=== PATIENT | male | born 1995 | race American Indian/Alaskan Native ===

== ENCOUNTER 2016-06-22 12:29 | Emergency (ER) | payer OTHER ==
[~2016-06-22] VITALS: Ht 185.4 cm; Wt 141.0 kg
[~2016-06-22 12:29] MED LIST: AUGM875T PO; CLIN1GEL EXT
[2016-06-22 12:33] VITALS: BP 161/93; PULSE 91; RESP 16; TEMP 98.6; O2SAT 99
--- NOTE | 2016-06-22 12:52 | PD ---
HPI Chief Complaint: Head Injury Time Seen by Provider: 12:39 Travel History International Travel<30 days: No Contact w/Intl Traveler<30days: No Traveled to known affect area: No History of Present Illness HPI [id number] male presents emergency room complaining of headache. He states he was stepping up onto a truck to clean a gutter when he hit his head on the gutter. He was dazed. He did not get knocked out. [place] initially okay. He went home and slept. Today woke up and has some headache, he feels fatigued, he feels dizzy. No vomiting. No contusions or abrasions or lacerations about his head. He otherwise had been feeling generally well and healthy. No history of previous similar symptoms. No history of head injuries. History Past Medical History Medical History: Denies Significant Hx Social History Alcohol Use: No Tobacco Use: No Allergies-Medications (Allergen,Severity, Reaction): Coded Allergies: No Known Allergies (Unverified , 06/22/16) Reported Meds & Prescriptions Reported Meds & Active Scripts Active Clindamax (Clindamycin Phosphate (Topical) 1 % Gel 1 % EXT DAILY Augmentin 875 mg Tab (Amoxicillin & Pot Clavulanate 875 mg Tab) 875 Mg Tab 875 Mg PO BID Review of Systems Except as stated in HPI: all other systems reviewed are Neg Physical Exam Narrative GENERAL: Well-appearing 20-year-old, no acute distress. SKIN: Focused skin assessment warm/dry. HEAD: Atraumatic. Normocephalic. No evidence of injury. EYES: Pupils equal and round. No scleral icterus. No injection or drainage. ENT: No nasal bleeding or discharge. Mucous membranes pink and moist. NECK: Trachea midline. No JVD. No midline tenderness. Full painless range of motion. CARDIOVASCULAR: Regular rate and rhythm. No murmur appreciated. RESPIRATORY: No accessory muscle use. Clear to auscultation. Breath sounds equal bilaterally. GASTROINTESTINAL: Abdomen soft, non-tender, nondistended. Hepatic and splenic margins not palpable. MUSCULOSKELETAL: No obvious deformities. No edema. NEUROLOGICAL: Awake and alert. No obvious cranial nerve deficits. Motor grossly within normal limits. Normal speech. Data Data Last Documented VS Vital Signs Date Time Temp Pulse Resp B/P Pulse Ox O2 Delivery O2 Flow Rate FiO2 4/14/17 12:33 98.6 91 16 161/93 99 [facility] Medical Decision Making Medical Screen Exam Complete: Yes Emergency Medical Condition: Yes Differential Diagnosis Concussion, head injury, ICH, other Narrative Course Medical decision making 20-year-old minor head injury. Some concussion symptoms. No evidence of clinically important traumatic brain injury. Recommend supportive treatment. Diagnosis Primary Impression: Closed head injury Additional Impression: Concussion Departure Forms: Tests/Procedures, Work Release Enter return to work date: Jun 23, 2016 Additional Instructions: Follow-up with your primary doctor for not fully well the next 3-5 days. Use acetaminophen or ibuprofen as needed for pain. Return to the emergency department for any new or worsening symptoms. Med/Other Pt SpecificInfo: No Change to Meds Disposition: 01 DISCHARGE HOME Condition: Stable Ihsan Pierson MD Jun 22, 2016 12:52
== END 2016-06-22 13:10 | disposition home or self-care (01) ==
LOC: PHED 12:29
DX: S09.90XA Unspecified injury of head, initial encounter (principal); S06.0X9A Concussion with loss of consciousness of unspecified duration, initial encounter; W22.8XXA Striking against or struck by other objects, initial encounter; Y93.89 Activity, other specified; Y92.9 Unspecified place or not applicable; Y99.9 Unspecified external cause status
CPT/HCPCS: 99283

== ENCOUNTER 2016-07-26 10:19 | Emergency (ER) | payer OTHER ==
[~2016-07-26] VITALS: Ht 185.4 cm; Wt 145.5 kg
[2016-07-26 10:23] VITALS: BP 141/93; PULSE 88; RESP 18; TEMP 98; O2SAT 97
[2016-07-26] MEDS ORDERED: NAPROXEN 500 MG TAB PO ONE (10:45)
[2016-07-26] MEDS ORDERED: NAPR500 PO (10:50)
--- NOTE | 2016-07-26 10:52 | PD ---
HPI Chief Complaint: Pain: Acute or Chronic Time Seen by Provider: 10:27 Travel History International Travel<30 days: No Contact w/Intl Traveler<30days: No Traveled to known affect area: No History of Present Illness HPI Is a 20-year-old young man who presents to the emergency department of left lower abdominal pain/left groin pain. He states he was getting out of his truck , which is not particularly high, when he got out of On the ground and had severe pain. Cause a drop to the ground. He did not feel like he was a particularly hard jump, or awkward landing. No bending or twisting. Since that time she's had persistent pain in his left lower quadrant. States no testicular pain or swelling. Symptoms started about an hour ago. History Past Medical History Medical History: Denies Significant Hx Social History Alcohol Use: No Tobacco Use: No Allergies-Medications (Allergen,Severity, Reaction): Coded Allergies: No Known Allergies (Unverified , 06/22/16) Reported Meds & Prescriptions Reported Meds & Active Scripts Active Naprosyn (Naproxen) 500 Mg Tab 500 Mg PO BID PRN Review of Systems Except as stated in HPI: all other systems reviewed are Neg Physical Exam Narrative GENERAL: Well-appearing 20-year-old young man, no acute distress. SKIN: Warm and dry. CARDIOVASCULAR: Warm and well perfused. RESPIRATORY: Normal rate and effort. Abdomen: Moderate left lower quadrant abdominal pain. MUSCULOSKELETAL: Examination of the left lower extremity unremarkable. Full painless range of motion of the hip and knee. : Patient refuses. NEUROLOGICAL: Awake and alert. No gross deficits. Data Data Last Documented VS Vital Signs Date Time Temp Pulse Resp B/P Pulse Ox O2 Delivery O2 Flow Rate FiO2 07/26/16 10:49 16 07/26/16 10:23 98.0 88 141/93 97 Orders Urinalysis - C+S If Indicated (07/26/16 10:40) Spine, Lumbar - Ltd (Ap & Lat) (07/26/16 ) Naproxen (Naprosyn) (07/26/16 10:45) Labs Laboratory Tests Test 07/26/16 10:45 Urine Collection Type CLEAN CATCH Urine Color YELLOW Urine Turbidity CLEAR Urine pH 6.0 Urine Specific [place] 1.025 Urine Protein NEG mg/dL Urine Glucose (UA) NEG mg/dL Urine Ketones NEG mg/dL Urine Occult Blood NEG Urine Nitrite NEG Urine Bilirubin NEG Urine Leukocyte Esterase NEG Urine RBC 0-3 /hpf Urine Squamous Epithelial 0-5 /hpf Cells Microscopic Urinalysis Comment CULT NOT INDICATED Urine Collection Time 10:45 [facility] Medical Decision Making Medical Screen Exam Complete: Yes Emergency Medical Condition: Yes Interpretation(s) L-spine x-ray: Negative. UA negative. Differential Diagnosis Groin strain, torsion, hernia, compression fracture, other Narrative Course Medical decision-making 20-year-old male with a four-quadrant abdominal pain after getting out of his truck. Abrupt in onset. I think he probably has a groin strain from getting out of the truck. He's had some chronic back pain, I think compression fracture or pathologic fractures unlikely. We will check an x-ray. Patient refusing a exam. I don't see any hernias. He states he has no testicular tenderness or swelling. Torsion would be another consideration. We'll recommend x-ray, urine, NSAIDs, outpatient follow-up. Diagnosis Primary Impression: Groin strain Qualified Code: S76.212A - Groin strain, left, initial encounter Additional Instructions: Take Naprosyn as prescribed. Return to the emergency department for any worsening pain, any testicular pain or swelling, any vomiting, or any other new or worsening symptoms. Follow-up with her primary doctor for not completely well in 2-3 days. Med/Other Pt SpecificInfo: Prescription(s) given Scripts Naproxen (Naprosyn)500 Mg Gdg101 Mg PO BID PRN (PAIN SCALE 1 TO 10) #20 TAB Prov:Ihsan Pierson MD 07/26/16 Disposition: 01 DISCHARGE HOME Condition: Stable Ihsan Pierson MD July 26, 2016 10:52
[2016-07-26 10:56] LABS: BLOOD, URINE NEG (NEG); GLUCOSE,URINE NEG (NEG); KETONE, URINE NEG (NEG); NITRITE,URINE NEG (NEG)
[2016-07-26 11:06] LABS: COMMENT (UR) CULT NOT INDICATED; CULTURE IF INDICATED CULT NOT INDICATED; METHOD OF COLLECTION CLEAN CATCH; RBC, URINE 0-3 /hpf (0-3); SQUAMOUS EPITHELIAL CELL URINE 0-5 /hpf (0-5); URINE COLOR YELLOW (YELLW/STRAW)
--- NOTE | 2016-07-26 11:30 | RADHPO ---
EXAM DATE/TIME: 07/26/2016 11:00 [place] COMPARISON: No previous studies available for comparison. INDICATIONS : Left groin pain after jumping out of a truck today. MEDICAL HISTORY : None. SURGICAL HISTORY : None. ENCOUNTER: Initial ACUITY: 1 day PAIN SCORE: 8/10 LOCATION: Left groin and radiates down the back of the left leg. FINDINGS: Two view examination was performed. There are five non-rib bearing vertebral bodies. The vertebral bodies are in normal alignment without evidence of subluxation or scoliosis. The disc spaces are johanna ntained. The pedicles are intact. Bony mineralization is normal. No fracture is identified. CONCLUSION: Unremarkable limited examination of the lumbar spine. Ihsan Schwartz MD on July 26, 2016 at 11:28 Board Certified Radiologist. This report was verified electronically.
[2016-07-26 11:35] VITALS: BP 149/80; PULSE 87; RESP 18; O2SAT 99
== END 2016-07-26 11:44 | disposition home or self-care (01) ==
LOC: PHED 10:19
DX: S39.011A Strain of muscle, fascia and tendon of abdomen, initial encounter (principal); X58.XXXA Exposure to other specified factors, initial encounter
CPT/HCPCS: 72100; 81001; 99283

== ENCOUNTER 2016-11-14 20:29 | Emergency (ER) | payer OTHER ==
[~2016-11-14] VITALS: Ht 185.4 cm; Wt 152.0 kg
[~2016-11-14 20:29] MED LIST changes: -AUGM875T PO; -CLIN1GEL EXT; +NAPR500 PO
[2016-11-14 20:34] VITALS: BP 131/99; PULSE 98; RESP 20; TEMP 98.5; O2SAT 98
--- NOTE | 2016-11-14 20:56 | PD ---
HPI Chief Complaint: Respiratory Symptoms Time Seen by Provider: 20:44 Travel History International Travel<30 days: No Contact w/Intl Traveler<30days: No Traveled to known affect area: No History of Present Illness HPI Patient is a 21-year-old male presents emergency Department with sore neck on the left side that he's had all day today, he states he woke up with this and is hurting him when he moves his neck towards the left. Patient has a secondary complaint of after eating [employer] this afternoon he has been gagging feeling like something might be stuck in his throat. He is been able to eat since this and tolerating by mouth fluids. States she just feels like something is gagging him. No fevers no cough no swelling in his neck or throat. PFSH Past Medical History Hx Anticoagulant Therapy: No Diabetes: No Diminished Hearing: No Immunizations Current: Yes Social History Alcohol Use: No Tobacco Use: No Substance Use: No Allergies-Medications (Allergen,Severity, Reaction): Coded Allergies: No Known Allergies (Unverified , 11/14/16) Reported Meds & Prescriptions Reported Meds & Active Scripts Active Nystatin Liq 100,000 unit/ml Susp 5 Ml SWISH-SWAL QID Naprosyn (Naproxen) 500 Mg Tab 500 Mg PO BID PRN Review of Systems Except as stated in HPI: all other systems reviewed are Neg Physical Exam Narrative GENERAL: Well-nourished, well-developed patient. SKIN: Focused skin assessment warm/dry. HEAD: Normocephalic. Atraumatic EYES: No scleral icterus. No injection or drainage. ENT: Oropharynx is clear, tonsils normal, uvula normal, no foreign body seen. Patient has exhibited some gag light reflex while talking to me in the emergency department. Tolerating his own secretions well. NECK: Supple, trachea midline. No JVD or lymphadenopathy. CARDIOVASCULAR: Regular rate and rhythm without murmurs, gallops, or rubs. RESPIRATORY: Breath sounds equal bilaterally. No accessory muscle use. GASTROINTESTINAL: Abdomen soft, non-tender, nondistended. MUSCULOSKELETAL: No cyanosis, or edema. BACK: Nontender without obvious deformity. No CVA tenderness. Data Data Last Documented VS Vital Signs Date Time Temp Pulse Resp B/P (MAP) Pulse Ox O2 Delivery O2 Flow Rate FiO2 11/14/16 22:24 89 18 153/73 (99) 98 11/14/16 21:00 98.5 Room Air Orders Orders Oggj-[id number] Liq (Magic Mouthwash Adul (11/14/16 21:00) [facility] Medical Decision Making Medical Screen Exam Complete: Yes Emergency Medical Condition: Yes Differential Diagnosis Pharyngeal foreign body, neck strain, mono unlikely, stroke unlikely, uvulitis unlikely. Narrative Course patient roomed in the emergency department, he has not had anything with bones: No fish and no chicken recently. He did have a meal just before the symptoms started and he may have a small fluid bolus in his pharynx causing some gagging symptoms. He appears well and has not had any fevers tolerating his own secretions. He was given a dose of nystatin Magic mouthwash and was tolerating by mouth liquids afterwards. I discussed with him expectant management at this time and discussed return to ED criteria and may ultimately need laryngoscopy but at this time I think he's got a fair chance to pass with possible food bolus at this time. X-rays are likely of little clinical utility at this time and I think it CAT scan caries with a significant risk of radiation and will likely not alter the course at this time. He is stable for discharge. Diagnosis Primary Impression: Sensation of foreign body in throat Patient Instructions: Dysphagia (ED), General Instructions Med/Other Pt SpecificInfo: Prescription(s) given Scripts Nystatin Liq (Nystatin Liq) 100,000 unit/ml Susp 5 ML SWISH-SWAL QID for Infection, #120 ML 0 Refills Prov: Edwin Rios MD 11/14/16 Disposition: 01 DISCHARGE HOME Condition: Stable Edwin Rios MD Nov 14, 2016 20:56
[2016-11-14 21:00] VITALS: BP 134/94; PULSE 98; RESP 18; TEMP 98.5; O2SAT 98
[2016-11-14] MEDS ORDERED: NYSTAT/DIPHENHY/LIDO MOUTHWASH (Adult) 120ML SWISH-SWAL ONE (21:00)
[2016-11-14] MEDS ORDERED: NYST1000 SWISH-SWAL (22:20)
[2016-11-14 22:24] VITALS: BP 153/73
== END 2016-11-14 22:32 | disposition home or self-care (01) ==
LOC: PHED 20:29
DX: R09.89 Other specified symptoms and signs involving the circulatory and respiratory systems (principal)
CPT/HCPCS: 99283

== ENCOUNTER 2017-02-23 09:00 | Emergency (ER) | payer OTHER ==
[~2017-02-23] VITALS: Ht 185.4 cm; Wt 151.0 kg
[~2017-02-23 09:00] MED LIST changes: +NYST1000 SWISH-SWAL
[2017-02-23 09:06] VITALS: BP 143/70; PULSE 72; RESP 16; TEMP 97.4; O2SAT 99
[2017-02-23] MEDS ORDERED: IBUP-232 PO (09:56)
--- NOTE | 2017-02-23 09:57 | PD ---
HPI Chief Complaint: ENT Complaint Time Seen by Provider: 09:32 Travel History International Travel<30 days: No Contact w/Intl Traveler<30days: No Traveled to known affect area: No History of Present Illness HPI 21-year-old male patient presents to the ER today with 2 days history of sore throat, pain with swallowing, but has been able to drink water and fluids, denies any coughing, fevers, vomiting, or any other symptoms. He does not know any sick contacts. Modifying Factors: None Associated Signs & Symptoms: Sore throat Risk Factors: None PFSH Past Medical History Medical History: Denies Significant Hx Hx Anticoagulant Therapy: No Diabetes: No Diminished Hearing: No Immunizations Current: Yes Influenza Vaccination: No Past Surgical History Surgical History: No Previous Surgery Social History Alcohol Use: No Tobacco Use: No Substance Use: No Allergies-Medications (Allergen,Severity, Reaction): Coded Allergies: No Known Allergies (Unverified Adverse Reaction, Unknown, 02/23/17) Reported Meds & Prescriptions Reported Meds & Active Scripts Active Review of Systems Except as stated in HPI: all other systems reviewed are Neg Physical Exam Narrative GENERAL: Well-developed young male patient currently in no acute distress. Awake and oriented 3. SKIN: Focused skin assessment warm/dry. HEAD: Atraumatic. Normocephalic. EYES: Pupils equal and round. No scleral icterus. No injection or drainage. ENT: Mucosa pink and moist. Mild pharyngeal erythema with no exudates. No uvular edema. No uvular, palatal, or tonsillar deviation. Airway patent. NECK: Trachea midline. No JVD. Supple. No masses, no fluctuance. No submandibular tenderness. CARDIOVASCULAR: Regular rate and rhythm. No murmur appreciated. RESPIRATORY: No accessory muscle use. Clear to auscultation. Breath sounds equal bilaterally. GASTROINTESTINAL: Abdomen soft, non-tender, nondistended. Hepatic and splenic margins not palpable. MUSCULOSKELETAL: No obvious deformities. No clubbing. No cyanosis. No edema. NEUROLOGICAL: Awake and alert. No obvious cranial nerve deficits. Motor grossly within normal limits. Normal speech. PSYCHIATRIC: Appropriate mood and affect; insight and judgment normal. Data Data Last Documented VS Vital Signs Date Time Temp Pulse Resp B/P (MAP) Pulse Ox O2 Delivery O2 Flow Rate FiO2 02/23/17 09:06 97.4 72 16 143/70 (94) 99 Orders Orders Group A Rapid Strep Screen (02/23/17 09:32) Strep Culture (Group A) (02/23/17 09:35) Ibuprofen (Motrin) (02/23/17 10:00) MDM Medical Decision Making Medical Screen Exam Complete: Yes Emergency Medical Condition: Yes Medical Record Reviewed: Yes Differential Diagnosis Pharyngitis: Strep versus viral Narrative Course Patient does not have significant hoarseness and is not drooling, able to drink fluids. Strep testing was negative. At this point, symptoms are more likely to be viral related. My plan would be to treat him supportively with ibuprofen , saltwater gargles, and have him follow-up as needed with primary care doctor. Return for any worsening in symptoms. The plan has been discussed with him and he states understanding. Throat cultures of also been sent and is pending. Diagnosis Primary Impression: Pharyngitis Med/Other Pt SpecificInfo: Prescription(s) given Scripts Ibuprofen (Ibuprofen) 600 Mg Tab 600 MG PO Q6H Y for Pain/Inflammation, #20 TAB 0 Refills Prov: Marques Baldwin MD 02/23/17 Disposition: 01 DISCHARGE HOME Condition: Stable Marques Baldwin MD Feb 23, 2017 09:57
[2017-02-23] MEDS ORDERED: IBUPROFEN 600 MG TAB PO ONE (10:00)
== END 2017-02-23 10:09 | disposition home or self-care (01) ==
LOC: PHEFT 09:00
DX: J02.9 Acute pharyngitis, unspecified (principal)
CPT/HCPCS: 87081; 87880; 99283

== ENCOUNTER 2017-06-20 14:42 | Emergency (ER) | payer OTHER ==
[~2017-06-20] VITALS: Ht 185.4 cm; Wt 155.0 kg
[~2017-06-20 14:42] MED LIST changes: +IBUP-232 PO; -NAPR500 PO; -NYST1000 SWISH-SWAL
[2017-06-20 14:45] VITALS: BP 163/79; PULSE 80; RESP 16; TEMP 98.9; O2SAT 96
[2017-06-20] MEDS ORDERED: IBUP1TAB7 PO (15:19)
[2017-06-20] MEDS ORDERED: ROBA750T PO (15:19)
--- NOTE | 2017-06-20 15:19 | PD ---
HPI Chief Complaint: Musculoskeletal Complaint Time Seen by Provider: 14:58 Travel History International Travel<30 days: No Contact w/Intl Traveler<30days: No Traveled to known affect area: No History of Present Illness HPI 21-year-old male here with right upper back and shoulder pain 1 day. He cannot recall specific injury or trauma. He reports the pain is worse with range of motion and relieved with rest. He denies paresthesia or weakness into the extremity. No chest pain shortness of breath. Symptom severity is mild to moderate. PFSH Past Medical History Medical History: Denies Significant Hx Hx Anticoagulant Therapy: No Diabetes: No Diminished Hearing: No Immunizations Current: Yes Social History Alcohol Use: No Tobacco Use: No Substance Use: No Allergies-Medications (Allergen,Severity, Reaction): Coded Allergies: No Known Allergies (Unverified Adverse Reaction, Unknown, 06/20/17) Reported Meds & Prescriptions Reported Meds & Active Scripts Active No Active Prescriptions or Reported Medications Review of Systems Except as stated in HPI: all other systems reviewed are Neg General / Constitutional: No: Fever Eyes: No: Visual changes HENT: No: Headaches Cardiovascular: No: Chest Pain or Discomfort Respiratory: No: Shortness of Breath Gastrointestinal: No: Abdominal Pain Physical Exam Narrative GENERAL: Alert and well-appearing 21-year-old male. Resting of the family structure. No distress. SKIN: Warm and dry. HEAD: Normocephalic. EYES: No injection or drainage. NECK: Supple. Patient freely moves the neck. No cervical midline tenderness. CARDIOVASCULAR: Regular rate and rhythm without murmurs, gallops, or rubs. RESPIRATORY: Breath sounds equal bilaterally. No accessory muscle use. GASTROINTESTINAL: Abdomen soft, non-tender, nondistended. MUSCULOSKELETAL: No cyanosis, or edema. Normal strength and sensation of the upper extremities. Equal hand grasp. BACK: Tenderness to the right trapezius muscle with muscle spasm. No midline spine tenderness. No step-off deformity. Data Data Last Documented VS Vital Signs Date Time Temp Pulse Resp B/P (MAP) Pulse Ox O2 Delivery O2 Flow Rate FiO2 06/20/17 14:45 98.9 80 16 163/79 (107) 96 MDM Medical Decision Making Medical Screen Exam Complete: Yes Emergency Medical Condition: Yes Differential Diagnosis Trapezius muscle spasm, cervical neuropathy, rotator cuff injury Narrative Course 21-year-old male here with trapezius/thoracic strain that is reproducible to palpation. He is well-appearing. The extremity is neurovascularly intact. He will be treated with NSAIDs and muscle relaxers. Diagnosis Primary Impression: Thoracic myofascial strain Qualified Codes: S29.019A - Strain of muscle and tendon of unspecified wall of thorax, initial encounter Referrals: Primary Care Physician Additional Instructions: Medication as directed. Avoid heavy lifting or strenuous activity. Follow-up with her primary doctor. Return if he develop new or worsening symptoms. Scripts Methocarbamol (Robaxin) 750 Mg Tab 750 MG PO QID for Muscle Spasm, #12 TAB 0 Refills Prov: Radha Cobb 06/20/17 Ibuprofen (Ibuprofen) 800 Mg Tab 800 MG PO Q6HR Y for PAIN, #40 TAB 0 Refills Prov: Radha Cobb 06/20/17 Disposition: 01 DISCHARGE HOME Condition: Stable Radha Cobb Jun 20, 2017 15:19
== END 2017-06-20 15:42 | disposition home or self-care (01) ==
LOC: PHEFT 14:42
DX: S29.012A Strain of muscle and tendon of back wall of thorax, initial encounter (principal); X58.XXXA Exposure to other specified factors, initial encounter
CPT/HCPCS: 99283